=== PATIENT | female | born 1975 | race Caucasian/White ===

== ENCOUNTER 2020-12-23 15:44 | Emergency (ER) | payer MEDICAID ==
[~2020-12-23] VITALS: Ht 170.2 cm; Wt 59.0 kg
--- NOTE | 2020-12-23 16:19 | NUR ---
BIB MOTHER, C/O BUE PAIN S/P GETTING [employer] IM YESTERDAY. ANXIOUS RADIO PERSONALITY. PT STATES GOT LOADING DOSE TO L DELTOID 9 DAYS AGO. PATIENT A/OX4, BREATHING EVEN AND UNLABORED, NO SOB NOTED.
[2020-12-23 16:20] VITALS: BP 99/57
[2020-12-23] MEDS ORDERED: LORAZEPAM INJ 2 MG/ML VIAL ONE (16:28)
[2020-12-23] MEDS ORDERED: LORAZEPAM INJ 2 MG/ML VIAL IM ONE (16:30)
[2020-12-23] MEDS ORDERED: CLIN300C12 PO (16:37)
[2020-12-23] MEDS ORDERED: LORA-259 PO (16:37)
== END 2020-12-23 17:03 | disposition home or self-care (01) ==
LOC: ER 15:51
DX: F41.0 Panic disorder [episodic paroxysmal anxiety] (principal); L03.114 Cellulitis of left upper limb
CPT/HCPCS: 96372; 99283; J2060

== ENCOUNTER → 2021-01-05 | Emergency (ER) | payer MEDICAID ==
[~2021-01-05] VITALS: Ht 167.6 cm; Wt 59.0 kg
[~2021-01-05] MED LIST: CLIN300C12 PO; LORA-259 PO
--- NOTE | 2021-01-05 17:21 | NUR ---
Patient discharged to home in stable condition. Written and verbal after care instructions given. Patient verbalizes understanding of instruction.
[2021-01-05 17:23] VITALS: BP 105/60
== END | disposition home or self-care (01) ==
LOC: ER 19:35
DX: M79.10 Myalgia, unspecified site (principal); T43.595A Adverse effect of other antipsychotics and neuroleptics, initial encounter; F29 Unspecified psychosis not due to a substance or known physiological condition; Z79.899 Other long term (current) drug therapy; Y92.89 Other specified places as the place of occurrence of the external cause